=== PATIENT | female | born 2000 | race Caucasian/White ===

== ENCOUNTER 2021-05-20 11:43 | Emergency (ER) | payer BC, SELFPAY ==
--- NOTE | ~2021-05-20 | US_ITS ---
EXAMINATION: US soft tissue pelvic EXAM DATE: 05/20/2021 15:15 INDICATION: swelling pain of mons pubis TECHNIQUE: Multiple grayscale and Doppler images of the symptomatic pelvic region were obtained (by a technologist who performed the scan) and subsequently reviewed. There is no prior study for compari son. FINDINGS: Scanning in the region of reported pain and swelling demonstrates normal-appearing skin and underlyin g subcutaneous fat. No focal mass, abscess or other sonographic abnormality identified. IMPRESSION: 1. Unremarkable ultrasound exam. Reviewed, dictated and finalized at location [facility]
[2021-05-20 11:55] VITALS: BP 153/103; PULSE 98; RESP 16; TEMP 36.8; O2SAT 100
[2021-05-20 15:43] LABS: Add Urine Microscopic? NO; Appearance Urine Clear (Clear); Bilirubin Urine Negative (Negative); Blood Urine Negative (Negative); Color Urine Yellow (Yellow); Glucose Urine UA Negative (Negative); Ketones Urine Negative (Negative); Leukocyte Esterase Ur Negative LEU/UL (Negative); Nitrate Urine Negative (Negative); Protein Urine Negative (Negative); Specific Grav Ur 1.017 (1.001-1.035); Urobilinogen Urine Negative mg/dL (<2.0)
--- NOTE | 2021-05-20 16:16 | ED.FEMALEGU ---
HPI - Female Genitourinary General Chief complaint: Urogenital-Female Stated complaint: GENITAL SWELLING Time Seen by Provider: 05/20/21 12:27 Source: patient Mode of arrival: ambulatory Limitations: no limitations History of Present Illness HPI Narrative: This is a 20 year old female that presents to the ER for an area of swelling and pain in the genital region. Reports she noted some pain to the area about a week ago. Over the last couple of days she noted some swelling. No concern for STDs. Denies fever, erythema, warmth, or dysuria. Related Data Allergies Allergy/AdvReac Type Severity Reaction Status Date / Time No Known Allergies Allergy Verified 05/20/21 12:36 Review of Systems Review of Systems: CONSTITUTIONAL: Denies fever SKIN: Reports swelling All systems reviewed & are unremarkable except as noted in HPI and below PMFSH Past Medical History Medical History (Updated 05/20/21 @ 16:22 by Ashley Bartlett PA-C) No active medical problems Social History Social History (Updated 05/20/21 @ 16:19 by Ashley Bartlett PA-C) Smoking status: Never smoker Exam Narrative: GENERAL: Well-appearing, well-nourished, and in no acute distress. HEAD: Normocephalic, atraumatic. EYES: EOMI. EXTREMITIES: Normal range of motion. No edema. SKIN: Warm, dry, no rash. NEURO: No focal deficits. Alert and oriented x3. PSYCH: Normal mood and affect FEMALE GENITAL: Area of swelling to the mons pubis that is tender to palpation. No overlying redness or warmth. No abnormal rashes or lesions noted. Course Vital Signs Vital signs: Vital Signs Temperature 98.2 F 05/20/21 11:55 Pulse Rate 98 05/20/21 11:55 Respiratory Rate 16 05/20/21 11:55 Blood Pressure 153/103 H 05/20/21 11:55 Pulse Oximetry 100 05/20/21 11:55 Temperature 98.2 F 05/20/21 11:55 Pulse Rate 98 05/20/21 11:55 Respiratory Rate 16 05/20/21 11:55 Blood Pressure 153/103 H 05/20/21 11:55 Pulse Oximetry 100 05/20/21 11:55 MDM - Female Genitourinary MDM Narrative Medical decision making narrative: Patient presents to the emergency department for an area of pain and swelling to the mons pubis. Noted over the last couple of days to a week. She is afebrile and nontoxic-appearing. There is no erythema or warmth of the area. No fluctuance to suggest an abscess. Urine is normal. Bedside test is negative. Soft tissue ultrasound of the area is unremarkable. The area is quite tender. Patient will be started on oral antibiotic in case this is start of an infection. 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 She was given warnings to return to the ER Lab Data Attestation: I reviewed the patient's lab results. Labs: Lab Results 05/20/21 Range/Units 15:34 Urine Color Yellow (Yellow) Urine Appearance Clear (Clear) Urine pH 8.0 (5.0-9.0) Ur Specific [place] 1.017 (1.001-1.035) Urine Protein Negative (Negative) mg/dL Urine Glucose (UA) Negative (Negative) mg/dL Urine Ketones Negative (Negative) mg/dL Ur Blood (Man) Negative (Negative) Urine Nitrate Negative (Negative) Urine Bilirubin Negative (Negative) Urine Urobilinogen Negative (<2.0) mg/dL Leukocyte Esterase Rfl Negative (Negative) ELSI/UL UCG Bedside Result Negative Reference Range: Negative Imaging Data Radiologist's impression: ITS Impressions Soft Tissue Ultrasound 05/20/21 15:23 IMPRESSION: 1. Unremarkable ultrasound exam. Critical Care Time Critical Care Time Critical Care Time: No Discharge Plan Discharge Clinical Impression: Localized soft tissue swelling Patient Disposition: Home, Self-Care Condition: Stable Instructions: Antibiotic Form, Soft Tissue Mass (ED) Additional Instructions: Return if symptoms worsen or concerns: any increase in redness, swelling, pain, or fever over 101 Take antibio
[2021-05-20] MEDS: KETOROLAC (*BKC) 60 MG/2 ML VIAL IM (16:20)
[2021-05-20 16:34] VITALS: BP 132/86; PULSE 90; RESP 17; O2SAT 98
== END 2021-05-20 16:36 | disposition home or self-care (01) ==
PROVIDERS: Physician Assistant; Emergency Provider Emergency Medicine; PCP Nurse Practitioner Family
DX: R19.09 Other intra-abdominal and pelvic swelling, mass and lump (principal)
CPT/HCPCS: 76857; 81003; 81025; 96372; 99284; J1885

== ENCOUNTER 2022-06-03 13:55 | Outpatient (CLI) | payer BC, SELFPAY ==
[2022-06-03 14:55] LABS: Beta HCG Quantitative 42.22 mIU/ML
== END 2022-06-03 13:56 | disposition home or self-care (01) ==
PROVIDERS: PCP Nurse Practitioner Family; Visit Provider Advanced Practice Midwife
DX: O20.0 Threatened abortion (principal); Z3A.00 Weeks of gestation of pregnancy not specified
CPT/HCPCS: 36415; 84702; 85461; 86850; 86900; 86901

== ENCOUNTER 2022-06-05 13:16 | Outpatient (CLI) | payer BC, SELFPAY | END 2022-06-05 13:17 | disposition home or self-care (01) | LOC: ANHLAB 13:19 | PROVIDERS: PCP Nurse Practitioner Family; Visit Provider Advanced Practice Midwife | DX: O20.0 Threatened abortion (principal); Z3A.00 Weeks of gestation of pregnancy not specified | CPT/HCPCS: 36415; 84702 ==